=== PATIENT | female | born 1960 | race Caucasian/White ===

== ENCOUNTER → 2017-01-12 | Outpatient (CLI) | payer OTHER ==
--- NOTE | ~2017-01-12 | MY29 ---
[facility] A Service of [facility] RADIOLOGY TEXT RESULTS PATIENT: LORENE KERN LOCATION: [facility] : 62 UNIT #: [id number] AGE: [address]: Laurel Barrera APRN SEX: F ORDER DR: [id number] [facility] [address] [place], [place] [address] [id number] O MR#: [id number] Acc #: [id number] NAME: LORENE KERN : 1960 SEX: F STUDY DATE/TIME: 01/12/2017 12:57 UNIT: [facility] ROOM: STUDY DESCRIPTION: MY LORRAINE SCREENING W/ CAD BILAT Attending Physician: Laurel Barrera A.P.R.N. Referring Physician: Laurel Barrera A.P.R.N. Ordering Physician: Laurel Barrera A.P.R.N. Primary Care Physician: Laurel Barrera A.P.R.N. MEDICAL IMAGING REPORT This report is preliminary unless electronic signature is present EXAM Digital screening mammogram, 01/12/2017; [facility]. HISTORY 56-year-old woman, no risk elevation. Annual screen. COMPARISON MAMMOGRAMS 12/30/2011, 09/29/2013, 12/31/2014, 01/07/2016. TECHNIQUE Digital imaging of each breast was completed utilizing screening protocol. Review includes FDA-approved CAD device. FINDINGS Breast parenchyma is heterogeneously dense with a fibronodular residual parenchymal pattern present in upper hemispheres of each breast. Mild parenchymal dominance in the right breast is stable. I see no interval occurring breast mass. There are no suspicious microcalcifications and no focal architectural distortion. IMPRESSION Stable benign mammogram. Annual screening recommended. BIRADS 2. Patients over the age of 40 are entered into a reminder system with target due date for the next mammogram. A result letter will also be sent to the patient. BIRADS: 2 Benign findings. Dictated by... [facility] A Service of [facility] / [facility] RADIOLOGY TEXT RESULTS PATIENT: LORENE KERN LOCATION: [facility] : 62 UNIT #: [id number] AGE: [address]: Laurel Barrera APRN SEX: F ORDER DR: Oliver Blevins M.D. THIS IS AN ELECTRONICALLY VERIFIED REPORT Oliver Blevins M.D. at 01/13/2017 8:18 AM MADY/sheng TD: 01/12/2017 21:26 JOB #: [id number] MEDICAL IMAGING REPORT Page 1 of 1 COPY
== END | disposition home or self-care (01) ==
LOC: CWCC 12:29
DX: Z12.31 Encounter for screening mammogram for malignant neoplasm of breast (principal)
CPT/HCPCS: G0202